=== PATIENT | male | born 1980 | race Caucasian/White ===

== ENCOUNTER 2019-03-31 20:54 | Emergency (ER) | payer OTHER ==
[~2019-03-31] VITALS: Ht 177.8 cm; Wt 88.5 kg
[2019-03-31] MEDS ORDERED: ADDERALL 30 MG30 MG PO (21:23)
[2019-03-31 21:53] LABS: AMP/METHAMP POSITIVE (Negative); BARBITURATES Negative (Negative); BENZODIAZEPINES Negative (Negative); COCAINE Negative (Negative); METHADONE Negative (Negative); OPIATES Negative (Negative); PCP Negative (Negative)
[2019-03-31 22:15] LABS: ABSOLUTE NEUTROPHILS 6.3 thou/uL (1.4-8.2); BASOPHILS 0.4 % (0.0-2.0); EOSINOPHILS 1.4 % (0.0-3.0); HEMATOCRIT 48.9 % (42.0-52.0); HEMOGLOBIN 16.5 gm/dL (14.0-18.0); LYMPHOCYTES 24.6 % (24.0-44.0); MCH 28.9 pg (26.0-34.0); MCHC 33.8 g/dL (28.0-37.0); MCV 85.5 fL (80.0-100.0); PLATELET COUNT 200 thou/uL (150-400); POLYS 64.6 % (36.0-66.0); RBC 5.72 mil/uL (4.50-6.00); RDW 13.1 % (10.5-14.5); WBC 9.7 thou/uL (4.0-11.0)
[2019-03-31 22:25] LABS: ANION GAP 13 mmol/L (7-16); BUN 14 mg/dL (7-18); CALCIUM 9.1 mg/dL (8.5-10.1); CHLORIDE 102 mmol/L (98-107); CO2 23 mmol/L (21-32); CREATININE 1.2 mg/dL (0.7-1.3); GLUCOSE 99 mg/dL (74-106); POTASSIUM 3.4 mmol/L (3.5-5.1); SODIUM 138 mmol/L (136-145)
[2019-03-31 22:30] LABS: ALBUMIN 4.1 g/dL (3.4-5.0); SALICYLATE 2.7 mg/dL (2.8-20.0); SGOT 30 U/L (15-37); SGPT 48 U/L (30-65); TOTAL BILIRUBIN 0.8 mg/dL (<0.1-1.0)
--- NOTE | 2019-04-01 08:06 | EKG ---
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 : 1980 Requested By: Matti Escalante Order Number: [id number] MD: Andrzej Chaidez Measurements Intervals Viola Rate: 95 P: 50 NM: 111 QRS: 17 QRSD: 82 T: 174 QT: 311 QTc: 391 Interpretive Statements Sinus rhythm Borderline short NM interval Repol abnrm suggests ischemia, anterolateral No previous ECG available for comparison Electronically Signed On 04-01-2019 8:06:39 CDT by Andrzej Chaidez [email or web address] ��������������������������������������������� <ELECTRONICALLY SIGNED> ���������������������������������������� By: Andrzej Chaidez MD ��������������������������������������������� 04/01/19805 11 11 Andrzej Chaidez MD /ZANE
[2019-04-01 18:03] VITALS: BP 145/87
== END 2019-04-01 18:04 | disposition short-term general hospital (02) ==
LOC: ER 20:54
PROVIDERS: Emergency Medicine
DX: R45.851 Suicidal ideations (principal); F17.210 Nicotine dependence, cigarettes, uncomplicated; Z86.73 Personal history of transient ischemic attack (TIA), and cerebral infarction without residual deficits